=== PATIENT | male | born 1985 | race African-American/Black ===

== ENCOUNTER 2018-10-28 20:11 | Emergency (ER) | payer SELFPAY ==
[~2018-10-28] VITALS: Ht 177.8 cm; Wt 120.2 kg
[~2018-10-28 20:11] MED LIST: AMLO10TA4 PO; CARV25TA2 PO; CEPH500C PO; HYDR-3164 PO; HYDR12.58 PO; LISI1TAB3 PO; POTA20TA82 PO
[2018-10-28 20:15] VITALS: BP 188/116
[2018-10-28] MEDS ORDERED: DIPHTH,PERTUSS(ACELL),TET TOX 0.5 ML DISP.SYRIN. VAX IM ONE (21:00)
[2018-10-28] MEDS ORDERED: LIDOCAINE 1% PF 2 ML VIAL. INJ ONE (21:00)
--- NOTE | 2018-10-28 21:30 | RAD ---
Exam: Right foot 3 views INDICATION: Right foot puncture wound TECHNIQUE: Frontal, lateral and oblique views of the right foot Comparisons: None FINDINGS: Bone mineralization and development are normal. No acute or healed fractures. Soft tissues are unremarkable. Joint spaces are well-maintained. IMPRESSION: No acute osseous abnormality. No radiopaque foreign body. Electronically signed by: Olesya Mckoy MD (10/28/2018 9:27 PM) [facility]
--- NOTE | 2018-10-28 21:33 | PHYS DOC ---
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 Patient states he is unsure of what he stepped on that went through his shoe and cut the skin on the bottom of his right foot. He is unsure when his last tetanus shot was. He currently denies any pain unless pressure is applied to the area. ROS Patient denies any fever, cough, shortness of breath, sore throat, ear pain, nausea, vomiting, or diarrhea. He denies any numbness or tingling of the affected extremity. He reports that he has been able to ambulate and bear weight on the affected foot. All other ROS is neg unless otherwise noted in HPI. Review of Systems Review of Systems See Above Current Medications Current Medications Current Medications Medications (Trade) Dose Ordered Sig/Samantha Start Time Stop Time Status Last Admin Dose Admin Acetaminophen/ Hydrocodone Bitart (Lortab 5/325) 1 tab STK-MED ONCE 10/28/18 22:04 10/28/18 22:09 DC Diphtheria/ Tetanus/Acell Pertussis (Boostrix) 0.5 ml ONCE ONCE 10/28/18 21:00 10/28/18 21:05 DC 10/28/18 21:03 0.5 ML Lidocaine HCl (Xylocaine-Mpf 1% 2ml Vial) 4 ml 1X ONCE 10/28/18 21:00 10/28/18 21:01 DC 10/28/18 21:45 4 ML Allergies Allergies Allergies Coded Allergies Type Severity Reaction Last Updated Verified No Known Drug Allergies 02/13/15 No Physical Exam Physical Exam See Above Constitutional: Well developed, well nourished, no acute distress, non-toxic appearance. [] HENT: Normocephalic, atraumatic, bilateral external ears normal, oropharynx moist, no oral exudates, nose normal. [] Eyes: conjunctiva normal, no discharge. [] Neck: Normal range of motion, no stridor. [] Lungs & Thorax: Respirations even and unlabored, no retractions, no respiratory distress Skin: Warm, dry, no erythema, no rash; there is V-shaped laceration measuring 1.5 cm on each side noted to the plantar surface of the right foot proximal to the fourth toe, no active bleeding at this time [] Extremities: No cyanosis, ROM intact, no edema; right foot tenderness to palpation at the puncture site, no edema, no crepitus Neurologic: Alert and oriented X 3, normal motor function, normal sensory function, no focal deficits noted. [] Psychologic: Affect normal, judgement normal, mood normal. [] Current Patient Data Vital Signs Vital Signs Date Time Temp Pulse Resp B/P (MAP) Pulse Ox O2 Delivery O2 Flow Rate FiO2 10/28/18 22:08 15 99 Room Air 10/28/18 20:15 98.6 80 188/116 (140) 98.6 EKG EKG [] Radiology/Procedures Radiology/Procedures PROCEDURE: FOOT RIGHT 3V Exam: Right foot 3 views INDICATION: Right foot puncture wound TECHNIQUE: Frontal, lateral and oblique views of the right foot Comparisons: None FINDINGS: Bone mineralization and development are normal. No acute or healed fractures. Soft tissues are unremarkable. Joint spaces are well-maintained. IMPRESSION: No acute osseous abnormality. No radiopaque foreign body.[] Laceration Repair by me: Anesthesia: 1% lidocaine locally 4 ml Location: plantar surface R foot Tendon/Joint/Nerves: No injury Foreign body: None detected after copious irrigation and exploration Technique: 2 loose Simple Interrupted Sutures with 4-0 Ethilon, one in each side of the V-shaped laceration, were used to help approximate wound Complexity: No subcutaneous sutures/mucosal repair/edge excision Post Closure Length: 3 cm Patient's bleeding was easily controlled in the department and there is no indication of anemia. No evidence of compartment syndrome, neurologic injury, vascular injury, open joint, tendon laceration, or foreign body. Patient is appropriate for outpatient follow up. Course & Med Decision Making Course & Med Decision Making Pertinent Labs and Imaging studies reviewed. (See chart for details) dx: right foot puncture wound, Tdap immunization needed Patient's tetanus was updated in the emergency department. Wound care was provided as documented under procedures. Prescription was written for Cipro 500 mg by mouth twice a day �7 days. Pt was instructed to keep the site clean and dry. Change the dressing and apply antibiotic ointment twice daily. He may take Tylenol or ibuprofen as needed for pain. Return to the ER or follow up with your Primary care doctor in 10-14 days to have sutures removed, sooner if signs of infection including: redness, warmth, drainage, or fever. Patient verbalized an understanding of home care, medications, follow-up, and return to ED instructions and was in agreement with the plan of care. [] Dragon Disclaimer Dragon Disclaimer This electronic medical record was generated, in whole or in part, using a voice recognition dictation system. Departure Departure Impression: Primary Impression: Puncture wound of right foot excluding toes without complication Additional Impression: Need for Tdap vaccination Disposition: HOME, SELF-CARE Condition: STABLE Referrals: Dejan GIPSON MD (PCP) Patient Instructions: Laceration Care, Adult, [id number], Puncture Wound, [id number] Additional Instructions: Fill the prescription and use as directed. Keep the site clean and dry. Change the dressing and apply antibiotic ointment twice daily. Tylenol or ibuprofen as needed for pain. Return to the ER or follow up with your Primary care doctor in 10-14 days to have sutures removed, sooner if signs of infection including: redness, warmth, drainage, or fever. Scripts Ciprofloxacin Hcl (CIPRO) 500 Mg Tablet 1 TAB PO BID for 10 Days, #20 TAB 0 Refills Prov: ALBIN GONZALEZ [employer]ING MACHINE OPERATOR 10/28/18 Problem Qualifiers Primary Impression: Puncture wound of right foot excluding toes without complication Encounter type: initial encounter Qualified Codes: S91.331A - Puncture wound without foreign body, right foot, initial encounter ALBIN GONZALEZ [employer]ING MACHINE OPERATOR Oct 28, 2018 21:33
[2018-10-28] MEDS ORDERED: HYDROcodone/APAP 5/325MG 1 TAB TABLET PO ONE (22:00)
[2018-10-28] MEDS ORDERED: CIPR500T94 PO (22:00)
[2018-10-28] MEDS ORDERED: HYDROcodone/APAP 5/325MG 1 TAB TABLET ONE (22:04)
== END 2018-10-28 22:09 | disposition home or self-care (01) ==
LOC: ER 20:11
DX: S91.331A Puncture wound without foreign body, right foot, initial encounter (principal); I10 Essential (primary) hypertension; Y28.8XXA Contact with other sharp object, undetermined intent, initial encounter; Y93.89 Activity, other specified; Y92.89 Other specified places as the place of occurrence of the external cause; Y99.8 Other external cause status
CPT/HCPCS: 12002; 73630; 90471; 90715; 99284-25

== ENCOUNTER 2020-05-05 08:24 | Emergency (ER) | payer OTHER, BC ==
[~2020-05-05 08:24] MED LIST changes: +CIPR500T94 PO; +LISI1TAB23 PO; -LISI1TAB3 PO; +POTA20TA4 PO; -POTA20TA82 PO
== END 2020-05-05 09:42 | disposition home or self-care (01) ==
LOC: ER 08:24
DX: R52 Pain, unspecified (principal)
CPT/HCPCS: 99281

== ENCOUNTER → 2021-06-07 | Outpatient (CLI) | payer BC ==
[2020-11-08 11:00] VITALS: BP 118/67
[~2021-06-07] MED LIST changes: +AMLO-186 PO; +AMOX1TAB61 PO; -LISI1TAB23 PO; +LISI1TAB35 PO; +LISI1TAB37 PO; +OXYC-325 PO; +SPIR50TA4 PO
== END ==
LOC: LAB 13:00
PROVIDERS: ATTEND Surgery
DX: Z01.812 Encounter for preprocedural laboratory examination (principal); Z20.822 Contact with and (suspected) exposure to COVID-19
CPT/HCPCS: U0003

== ENCOUNTER 2021-06-09 06:14 | Day surgery (SDC) | payer BC ==
[~2021-06-09] VITALS: Ht 180.3 cm; Wt 122.7 kg
[~2021-06-09 06:14] MED LIST changes: +HYDROmorphone 2 MG/ML INJ. IVP PRN; +IV RINGERS,LACTATED 1000ML 1,000 ML IV SCH; -OXYC-325 PO; +PROCHLORPERAZINE 10 MG/2 ML VIAL. IVP PRN; +ceFAZolin SODIUM 3 GM in IV DEXTROSE 5% 100ML 100 ML IV PRN; +fentaNYL PF VIAL 100 MCG/2 ML VIAL IVP PRN
[2021-06-09 06:43] VITALS: BP 119/59
[2021-06-09] MEDS ORDERED: FAMOTIDINE 20 MG/2 ML VIAL IVP ONE (07:00)
[2021-06-09] MEDS ORDERED: LIDOCAINE 2% PF 5 ML VIAL. ONE (07:01)
[2021-06-09] MEDS ORDERED: SEVOFLURANE 31 TO 60 MINUTES. IH ONE (07:01)
[2021-06-09] MEDS ORDERED: PROPOFOL 10 MG/ML (20ML) VIAL. IV ONE (07:01)
[2021-06-09] MEDS ORDERED: GLYCOPYRROLATE 1 MG/5 ML VIAL. ONE (07:01)
[2021-06-09] MEDS ORDERED: ONDANSETRON PF 4 MG/2 ML VIAL. ONE (07:01)
[2021-06-09] MEDS ORDERED: DEXAMETHASONE SOD PHOS 4 MG/ML VIAL ONE (07:01)
[2021-06-09] MEDS ORDERED: fentaNYL PF VIAL 100 MCG/2 ML VIAL ONE ×2 (07:02→09:40)
[2021-06-09] MEDS ORDERED: NEOSTIGMINE METHYLSULFATE 5 MG/5 ML SYRINGE. ONE (07:02)
[2021-06-09] MEDS ORDERED: ROCURONIUM 50 MG/5 ML VIAL. ONE (07:02)
[2021-06-09] MEDS ORDERED: MIDAZOLAM HCL/PF 2 MG/2 ML VIAL. ONE (07:03)
[2021-06-09] MEDS ORDERED: BUPIVACAINE-EPI 0.5% 30 ML VIAL KIT. ONE (07:08)
--- NOTE | 2021-06-09 07:21 | PDOC1 ---
History and Physical Date of Admission Date of Admission DATE: 06/09/21 TIME: 07:19 History of Present Illness History of Present Illness The patient is a 35-year-old male who is referred due to a periumbilical hernia. He noticed a small bump near his umbilicus approximately 1-1/2 years ago. He does report some associated discomfort which is worse with exertion. CT scan was performed due to generalized abdominal pain which did confirm a periumbilical hernia. He denies any changes in bowel or bladder function. Past Medical History Past Medical History Hypertension, morbid obesity Past Surgical History Past Surgical History He denies Family History Family History: Hypertension Social History Smoke: No ALCOHOL: occassional Drugs: None Current Medications Current Medications Current Medications Fentanyl Citrate (Fentanyl 2ml Vial) 25 mcg PRN Q5MIN PRN IVP MILD PAIN 1-3; Start 06/09/21 at 06:00; Stop 06/10/21 at 05:59 Fentanyl Citrate (Fentanyl 2ml Vial) 50 mcg PRN Q5MIN PRN IVP MODERATE PAIN 4- 6; Start 06/09/21 at 06:00; Stop 06/10/21 at 05:59 Morphine Sulfate (Morphine Sulfate) 1 mg PRN Q10MIN PRN IVP SEVERE PAIN 7-10; Start 06/09/21 at 06:00; Stop 06/10/21 at 05:59 Ringer's Solution 1,000 ml @ 30 mls/hr Q24H IV Last administered on 06/09/21at 06:53; Start 06/09/21 at 06:00; Stop 06/09/21 at 17:59 Hydromorphone HCl (Dilaudid) 0.5 mg PRN Q10MIN PRN IVP SEVERE PAIN 7-10, 2nd CHOICE; Start 06/09/21 at 06:00; Stop 06/10/21 at 05:59 Prochlorperazine Edisylate (Compazine) 5 mg PACU PRN PRN IVP NAUSEA, MRX1; Start 06/09/21 at 06:00; Stop 06/10/21 at 05:59 Cefazolin Sodium 3 gm/Dextrose 100 ml @ 200 mls/hr 1X PREOP PRN IV PRIOR TO PROCEDURE; Start 06/09/21 at 06:00; Stop 06/09/21 at 15:00 Famotidine (Pepcid Vial) 20 mg 1X ONCE IVP Last administered on 06/09/21at 07:13; Start 06/09/21 at 07:00; Stop 06/09/21 at 07:01; Status DC Propofol (Diprivan) 200 mg STK-MED ONCE IV ; Start 06/09/21 at 07:01; Stop 06/09/21 at 07:01; Status DC Dexamethasone Sodium Phosphate (Decadron) 4 mg STK-MED ONCE .ROUTE ; Start 06/09/21 at 07:01; Stop 06/09/21 at 07:01; Status DC Lidocaine HCl (Lidocaine Pf 2% Vial) 5 ml STK-MED ONCE .ROUTE ; Start 06/09/21 at 07:01; Stop 06/09/21 at 07:01; Status DC Ondansetron HCl (Zofran) 4 mg STK-MED ONCE .ROUTE ; Start 06/09/21 at 07:01; Stop 06/09/21 at 07:01; Status DC Glycopyrrolate (Robinul) 1 mg STK-MED ONCE .ROUTE ; Start 06/09/21 at 07:01; Stop 06/09/21 at 07:01; Status DC Sevoflurane (Ultane) 30 ml STK-MED ONCE IH ; Start 06/09/21 at 07:01; Stop 06/09/21 at 07:01; Status DC Rocuronium [place] (Zemuron) 50 mg STK-MED ONCE .ROUTE ; Start 06/09/21 at 07:02; Stop 06/09/21 at 07:02; Status DC Fentanyl Citrate (Fentanyl 2ml Vial) 100 mcg STK-MED ONCE .ROUTE ; Start 06/09/21 at 07:02; Stop 06/09/21 at 07:02; Status DC Neostigmine [place] (Neostigmine Methylsulfate) 5 mg STK-MED ONCE .ROUTE ; Start 06/09/21 at 07:02; Stop 06/09/21 at 07:02; Status DC Midazolam HCl (Versed) 2 mg STK-MED ONCE .ROUTE ; Start 06/09/21 at 07:03; Stop 06/09/21 at 07:03; Status DC Bupivacaine HCl/ Epinephrine Bitart (Sensorcain-Epi 0.5% Kit) 30 ml STK-MED ONCE .ROUTE ; Start 06/09/21 at 07:08; Stop 06/09/21 at 07:08; Status DC Active Scripts Active Reported Spironolactone 50 Mg Tablet 50 Mg PO DAILY Carvedilol 25 Mg Tablet 25 Mg PO BIDWMEALS Lisinopril-Hctz 20-12.5 Mg Tab (Lisinopril/Hydrochlorothiazide) 1 Each Tablet 1 Tab PO BID Allergies Allergies: Coded Allergies: No Known Drug Allergies (Unverified , 06/09/21) ROS General: No: Chills, Night Sweats, Fatigue, Malaise, Appetite, Other PSYCHOLOGICAL ROS: No: Anxiety, Behavioral Disorder, Concentration difficultie, Decreased libido, Depression, Disorientation, Hallucinations, Hostility, Irritablity, Memory difficulties, Mood Swings, Obsessive thoughts, Physical abuse, Sexual abuse, Sleep disturbances, Suicidal ideation, Other Eyes: No Blurry vision, No Decreased vision, No Double vision, No Dry eyes, No Excessive tearing, No Eye Pain, No Itchy Eyes, No Loss of vision, No Photophobia, No Scotomata, No Uses contacts, No Uses glasses, No Other HEENT: No: Heacaches, Visual Changes, Hearing change, Nasal congestion, Nasal discharge, Oral lesions, Sinus pain, Sore Throat, Epistaxis, Sneezing, Snoring, Tinnitus, Vertigo, Vocal changes, Other ALLERGY AND IMMUNOLOGY: No: Hives, Insect Bite Sensitivity, Itchy/Watery Eyes, Nasal Congestion, Post Nasal Drip, Seasonal Allergies, Other Hematological and Lymphatic: No: Bleeding Problems, Blood Clots, Blood Transfusions, Brusing, Night Sweats, Pallor, Swollen Lymph Nodes, Other ENDOCRINE: No: Breast Changes, Galactorrhea, Hair Pattern Changes, Hot Flashes, Malaise/lethargy, Mood Swings, Palpitations, Polydipsia/polyuria, Skin Changes, Temperature Intolerance, Unexpected Weight Changes, Other Respiratory: No: Cough, Hemoptysis, Orthopnea, Pleuritic Pain, Shortness of breath, SOB with excertion, Sputum Changes, Stridor, Tachypnea, Wheezing, Other Cardiovascular: No Chest Pain, No Palpitations, No Orthopnea, No Paroxysmal Noc. Dyspnea, No Edema, No Lt Headedness, No Other Gastrointestinal: No Nausea, No Vomiting, No Abdominal Pain, No Diarrhea, No Constipation, No Melena, No Hematochezia, No Other Genitourinary: No Dysuria, No Frequency, No Incontinence, No Hematuria, No Retention, No Discharge, No Urgency, No Pain, No Flank Pain, No Other, No , No , No , No , No , No , No Musculoskeletal: No Gait Disturbance, No Joint Pain, No Joint Stiffness, No Joint Swelling, No Muscle Pain, No Muscular Weakness, No Pain In:, No Swelling In:, No Other Neurological: No Behavorial Changes, No Bowel/Bladder ControlChng, No Confusion, No Dizziness, No Gait Disturbance, No Headaches, No Impaired Coord/balance, No Memory Loss, No Numbness/Tingling, No Seizures, No Speech Problems, No Tremors, No Visual Changes, No Weakness, No Other Skin: No Dry Skin, No Eczema, No Hair Changes, No Lumps, No Mole Changes, No Mottling, No Nail Changes, No Pruritus, No Rash, No Skin Lesion Changes, No Other, No Acne Physical Exam General: Alert, Oriented X3, Cooperative HEENT: Atraumatic Lungs: Clear to auscultation Abdomen: Soft (Morbidly obese, small periumbilical hernia noted) Rectal Exam: not examined Extremities: No clubbing, No cyanosis Skin: No rashes, No breakdown Neuro: Normal speech, Strength at 5/5 X4 ext Psych/Mental Status: Mental status NL Vitals Vitals Vital Signs Date Time Temp Pulse Resp B/P (MAP) Pulse Ox O2 Delivery O2 Flow Rate FiO2 06/09/21 06:46 97.4 73 19 119/59 96 Room Air 97.4 VTE Prophylaxis Ordered VTE Prophylaxis Devices: Yes VTE Pharmacological Prophylaxi: No Assessment/Plan Assessment/Plan Periumbilical hernia, recommend surgical repair. The details and risks of surgery were discussed with the patient. He understands and would like to proceed. Justifications for Admission Other Justification RACHEL LOBATO MD Jun 09, 2021 07:21
[2021-06-09] MEDS ORDERED: SUCCINYLCHOLINE 200 MG/10 ML VIAL. ONE (07:37)
[2021-06-09] MEDS ORDERED: ePHEDrine PF IN SALINE 50 MG/10 ML SYRINGE. IV ONE (08:06)
[2021-06-09] MEDS ORDERED: KETOROLAC 30 MG/ML VIAL. ONE (08:22)
[2021-06-09] MEDS ORDERED: DEXMEDETOMIDINE 200 MCG/2 ML VIAL. ONE (08:27)
--- NOTE | 2021-06-09 09:21 | PDOC4 ---
Operative Note Operative Note Operative Note: Preoperative Diagnosis: Periumbilical hernia Postoperative Diagnosis: Same Procedure: Repair of periumbilical hernia with mesh Surgeon: Yunior Whiskey Regauger: Checo BURGOS Anesthesia: General EBL: 10 mL Specimen: None Drains: None Complications: None Indication: The patient is a 35-year-old male who is referred with a periumbilical hernia. He requests operative repair. The risks of surgery were discussed which include bleeding, infection, mesh complications, pain, recurrence, anesthetic risk, potential need for additional surgery procedure. He understands and would like to proceed. Description: Patient was taken to the operating room and placed supine on the operating table. General anesthesia was performed. The abdomen was prepped with ChloraPrep and draped with sterile towels, sheets, and an Ioban. A curved infraumbilical incision was made in the skin with a scalpel. Cautery dissection was carried down to the fascia. The umbilical tissue was elevated off the fascia. There was a periumbilical hernia defect readily identified. A retrofascial plane was developed using combination of blunt and cautery dissection. A medium sized Ventralex ST mesh was placed in this retrofascial plane. The mesh was sutured to the fascia at the 12, 3, 6, 9:00 positions using 0 Prolene in horizontal mattress fashion. The fascial edges were closed over the mesh with 0 Prolene. The umbilicus was secured back to the fascia with 0 Vicryl. The subcutaneous tissue was approximated with 3-0 Vicryl. The skin was then closed with 4 Monocryl and infiltrated with half percent Marcaine with epinephrine. Steri-Strips and a sterile dressing were applied. The patient tolerated the procedure well and was sent to the recovery room in stable condition. At the end the case all counts were correct. RACHEL LOBATO MD Jun 09, 2021 09:21
[2021-06-09] MEDS ORDERED: OXYC-325 PO (09:23)
--- NOTE | 2021-06-09 09:25 | DISCH ---
DISCHARGE INSTRUCTIONS Condition on Discharge Condition on Discharge: Stable Activity After Discharge Activity Instructions for Disc: Other, see below (No lifting over 20 lbs, s trenuous activity X 6 weeks) Diet after Discharge Diet after Discharge: Regular Wound Incision Care Wound/Incision Care: Other, see below (keep dressing clean and dry X 72 hours, may then remove and shower) Follow-Up Follow up with: Dr Lobato in 2 weeks in office, call for appointment [phone] RACHEL LOBATO MD Jun 09, 2021 09:25
[2021-06-09] MEDS ORDERED: MORPHINE SULFATE 2 MG/ML INJ. ONE (09:40)
[2021-06-09] MEDS: fentaNYL PF VIAL 100 MCG/2 ML VIAL IVP PRN ×2 (09:43→09:50)
[2021-06-09] MEDS: MORPHINE SULFATE 2 MG/ML INJ. IVP PRN ×2 (09:44→09:56)
[2021-06-09] MEDS ORDERED: oxyCODONE/APAP 5/325 1 TAB TABLET PO ONE (09:45)
[2021-06-09 10:05] VITALS: BP 109/54
== END 2021-06-09 10:40 | disposition home or self-care (01) ==
LOC: SURG 06:14
PROVIDERS: ATTEND Surgery
DX: K42.9 Umbilical hernia without obstruction or gangrene (principal); I10 Essential (primary) hypertension; F17.210 Nicotine dependence, cigarettes, uncomplicated; Z79.899 Other long term (current) drug therapy; Z98.890 Other specified postprocedural states
CPT/HCPCS: 49560; 49568; A4364; A4930; A6254; A6402; C1781; J0330; J1100; J1885; J2250; J2270; J2405; J2704; J2710; J3010; J3490; A4452